=== PATIENT | male | born 1965 | race Hispanic/Latino ===

== ENCOUNTER 2018-05-25 18:07 | Emergency (ER) | payer SELFPAY ==
[~2018-05-25] VITALS: Ht 177.8 cm; Wt 97.5 kg
[2018-05-25] MEDS ORDERED: CLINDAMYCIN HC300 MG PO (18:18)
[2018-05-25] MEDS ORDERED: ULTRAM50 MG PO (18:19)
[2018-05-25] MEDS ORDERED: LISINOPRIL10 MG PO (18:36)
[2018-05-25] MEDS ORDERED: METFORMIN HCL500 MG PO (18:36)
[2018-05-25] MEDS ORDERED: ESIDRIX25 MG PO (18:36)
== END 2018-05-25 18:51 | disposition home or self-care (01) ==
LOC: ER 18:07
DX: L02.414 Cutaneous abscess of left upper limb (principal); L03.114 Cellulitis of left upper limb
CPT/HCPCS: 99282